=== PATIENT | male | born 1980 | race Caucasian/White ===

== ENCOUNTER → 2018-06-22 | Outpatient (CLI) | payer OTHER | END | disposition home or self-care (01) | LOC: SURG 11:12 | PROVIDERS: ATTEND Anesthesiology | DX: M47.817 Spondylosis without myelopathy or radiculopathy, lumbosacral region (principal); M54.16 Radiculopathy, lumbar region; I10 Essential (primary) hypertension; J45.909 Unspecified asthma, uncomplicated; G47.33 Obstructive sleep apnea (adult) (pediatric); Z87.891 Personal history of nicotine dependence | CPT/HCPCS: 99204 ==

== ENCOUNTER 2018-07-03 02:00 | Emergency (ER) | payer OTHER ==
[~2018-07-03] VITALS: Ht 180.3 cm; Wt 105.7 kg
[2018-07-03 02:15] VITALS: BP 150/106
[2018-07-03] MEDS ORDERED: METH4TAB2 PO (02:36)
[2018-07-03] MEDS ORDERED: predniSONE 20 MG TABLET ONE (02:39)
[2018-07-03] MEDS ORDERED: predniSONE 20 MG TABLET PO ONE (02:45)
--- NOTE | 2018-07-03 02:53 | ED.ADGEN ---
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 Patient states he recently returned from [place] and lost all his medications. He states he was instructed to go to the emergency department for refill of medications. Patient is unable to state which medications he is currently on including pain medication. He is only requesting refill of his pain medication. Patient does have medical records including an MRI of his lumbar spine which details moderate to severe spinal stenosis. He is been referred to the pain management Center and is currently awaiting outpatient epidural steroid injections. No acute injury or pain complaint. Review of Systems Review of Systems ROS as per HPI> ] All other systems were reviewed and found to be within normal limits, except as documented in this note. Current Medications Current Medications Current Medications Medications (Trade) Dose Ordered Sig/Sapna Start Time Stop Time Status Last Admin Dose Admin Prednisone (Prednisone) 60 mg 1X ONCE 07/03/18 02:45 07/03/18 02:46 UNV Physical Exam Physical Exam Constitutional: Well developed, well nourished, moderate discomfort. [] HENT: Normocephalic, atraumatic, bilateral external ears normal, oropharynx moist, no oral. [] Eyes: PERRLA, EOMI. [] Neck: Normal range of motion, no tenderness. [] Cardiovascular:Heart rate regular rhythm, no murmur [] Lungs & Thorax: Bilateral breath sounds clear to auscultation [] Back: Diffuse low back pain. [] Extremities: No tenderness. [] Neurologic: Alert and oriented X 3, normal motor function, normal sensory function, no focal deficits noted. [] Psychologic: Affect normal, judgement normal, mood normal. [] Current Patient Data Vital Signs Vital Signs Date Time Temp Pulse Resp B/P (MAP) Pulse Ox O2 Delivery O2 Flow Rate FiO2 07/03/18 02:15 97.8 105 18 150/106 (121) Room Air EKG EKG [] Radiology/Procedures Radiology/Procedures [] Course & Med Decision Making Course & Med Decision Making Pertinent Labs and Imaging studies reviewed. (See chart for details) [Denies acute pain injury or complaint. Patient declined pain all non-narcotic pain medications and treatment. Courtesy work excuse note provided with PCP follow recommended. ] Final Impression Final Impression [1. Medication refill request] Dragon Disclaimer Dragon Disclaimer This electronic medical record was generated, in whole or in part, using a voice recognition dictation system. SOFÍA PARIS DO Jul 03, 2018 02:52
== END 2018-07-03 02:42 | disposition home or self-care (01) ==
LOC: ER 02:00
DX: Z76.0 Encounter for issue of repeat prescription (principal); M54.5 Low back pain
CPT/HCPCS: 99283

== ENCOUNTER → 2018-07-06 | Outpatient (CLI) | payer OTHER ==
[2018-07-03 02:15] VITALS: BP 150/106
[~2018-07-06] MED LIST: METH4TAB2 PO
[2018-07-06 12:08] LABS: BARBITURATES NEG (NEG); BENZODIAZEPINES NEG (NEG); CANNABINOIDS NEG (NEG); COCAINE NEG (NEG); METHADONE NEG (NEG); OPIATES NEG (NEG); PHENCYCLIDINE NEG (NEG)
[2018-07-06 12:13] LABS: AMPHETAMINE/METHAMPHETAMINE POS (NEG)
== END | disposition home or self-care (01) ==
LOC: SURG 10:48
PROVIDERS: ATTEND Anesthesiology
DX: M47.27 Other spondylosis with radiculopathy, lumbosacral region (principal); I10 Essential (primary) hypertension; G47.33 Obstructive sleep apnea (adult) (pediatric); J45.909 Unspecified asthma, uncomplicated; Z79.899 Other long term (current) drug therapy
CPT/HCPCS: 36415; 80307; 99214; G0479

== ENCOUNTER → 2018-07-27 | Outpatient (CLI) | payer OTHER ==
[2018-07-03 02:15] VITALS: BP 150/106
[~2018-07-27] MED LIST changes: +0.9 % SODIUM CHLORIDE 10 ML VIAL ONE; +DEXAMETHASONE SOD PHOS 4 MG/ML VIAL ONE; +IOHEXOL 300 MG/ML 50 ML VIAL. ONE; +LIDOCAINE 1% PF 30 ML VIAL. ONE
== END ==
LOC: SURG 09:10
PROVIDERS: ATTEND Anesthesiology
DX: M54.16 Radiculopathy, lumbar region (principal)
CPT/HCPCS: 64483; J1100; J2001; Q9967

== ENCOUNTER 2019-05-09 05:22 | Emergency (ER) | payer OTHER ==
[~2019-05-09] VITALS: Ht 180.3 cm; Wt 112.0 kg
[~2019-05-09 05:22] MED LIST changes: -0.9 % SODIUM CHLORIDE 10 ML VIAL ONE; -DEXAMETHASONE SOD PHOS 4 MG/ML VIAL ONE; -IOHEXOL 300 MG/ML 50 ML VIAL. ONE; -LIDOCAINE 1% PF 30 ML VIAL. ONE
--- NOTE | 2019-05-09 05:40 | ED.ADGEN ---
Past History Past Medical History: Other (GENET LAGUNA MD) Alcohol Use: Occasionally (GENET LAGUNA MD) Adult General Chief Complaint Chief Complaint ".. I ve been having abdomen pain, cramping.. and diarrhea...".."This been going on for 3-4 days.. ".. Diarrhea - yellow water... 6-7 x day.. 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 No recent overseas travel. No specific ill contacts. No history immunosuppression. No history of family colitis or ulcerative colitis.. Patient has been healthy. No history of prior Crohn's or colitis. Did eat a pork chop and white rice for dinner. There are 10 children in the family unit and some are always sick with something. Patient normally follows at [facility]. (GENET LAGUNA MD) Review of Systems Review of Systems Constitutional: Denies fever or chills [] Eyes: Denies change in visual acuity, redness, or eye pain [] HENT: Denies nasal congestion or sore throat [] Respiratory: Denies cough or shortness of breath [] Cardiovascular: No additional information not addressed in HPI [] GI: Complaints of abdomen cramping abdominal pain, nausea. Denies, vomiting, bloody stools. Complains of watery yellow diarrhea [] : Denies dysuria or hematuria [] Musculoskeletal: Denies back pain or joint pain [] Integument: Denies rash or skin lesions [] Neurologic: Denies headache, focal weakness or sensory changes [] Endocrine: Denies polyuria or polydipsia [] All other systems were reviewed and found to be within normal limits, except as documented in this note. (GENET LAGUNA MD) Family History Family History Noncontributory (GENET LAGUNA MD) Current Medications Current Medications Current Medications Medications (Trade) Dose Ordered Sig/Sapna Start Time Stop Time Status Last Admin Dose Admin Famotidine (Pepcid Vial) 20 mg 1X ONCE 05/09/19 06:00 05/09/19 06:01 DC 05/09/19 06:04 20 MG Hyoscyamine (Anaspaz) 0.25 mg 1X ONCE 05/09/19 08:25 05/09/19 08:26 DC 05/09/19 08:04 0.25 MG Iohexol (Omnipaque 300 Mg/ml) 75 ml 1X ONCE 05/09/19 08:15 05/09/19 08:16 DC 05/09/19 08:18 75 ML Ketorolac Tromethamine (Toradol 30mg Vial) 30 mg 1X ONCE 05/09/19 06:00 05/09/19 06:01 DC 05/09/19 06:04 30 MG Lactated Ringer's 1,000 ml @ 1,000 mls/hr 1X ONCE 05/09/19 07:15 05/09/19 08:14 DC 05/09/19 07:25 1,000 MLS/HR Morphine Sulfate (Morphine 10mg Syringe) 10 mg 1X ONCE 05/09/19 07:30 05/09/19 07:31 DC 05/09/19 07:25 10 MG Ondansetron HCl (Zofran) 8 mg 1X ONCE 05/09/19 06:00 05/09/19 06:01 DC 05/09/19 06:04 8 MG (KYM THACKER DO) Allergies Allergies Allergies Coded Allergies Type Severity Reaction Last Updated Verified methocarbamol Allergy Severe Itching 05/09/19 Yes (KYM THACKER DO) Physical Exam Physical Exam Constitutional: Well developed, well nourished,in acute distress, non-toxic appearance. [] HENT: Normocephalic, atraumatic, bilateral external ears normal, oropharynx dry, no oral exudates, nose normal. [] Eyes: PERRLA, EOMI, conjunctiva normal, no discharge. [] Neck: Normal range of motion, no tenderness, supple, no stridor. [] Cardiovascular:Heart rate regular rhythm, no murmur [] Lungs & Thorax: Bilateral breath sounds equal at apex auscultation [] Abdomen: Bowel sounds are hyperactive, soft, generalized tenderness, some rebound to upper abdomen area, no masses, no pulsatile masses. [] Skin: Warm, dry, no erythema, no rash. [] Back: No tenderness, no CVA tenderness. [] Extremities: No tenderness, no cyanosis, no clubbing, ROM intact, no edema. [] No psoas sign Neurologic: Alert and oriented X 3, normal motor function, normal sensory function, no focal deficits noted. [] Psychologic: Affect anxious, judgement normal, mood normal. [] (GENET LAGUNA MD) Current Patient Data Vital Signs Vital Signs Date Time Temp Pulse Resp B/P (MAP) Pulse Ox O2 Delivery O2 Flow Rate FiO2 05/09/19 07:30 74 18 154/101 (118) 94 Room Air 05/09/19 05:22 97.8 ([facility] [facility]) Lab Results Laboratory Tests Test 05/09/19 05:45 05/09/19 07:55 White Blood Count 8.3 x10^3/uL (4.0-11.0) Red Blood Count 5.01 x10^6/uL (4.30-5.70) Hemoglobin 15.9 g/dL (13.0-17.5) Hematocrit 48.0 % (39.0-53.0) Mean Corpuscular Volume 96 fL (79-100) Mean Corpuscular Hemoglobin 32 pg (25-35) Mean Corpuscular Hemoglobin Concent 33 g/dL (31-37) Red Cell Distribution Width 13.2 % (11.5-14.5) Platelet Count 294 x10^3/uL (140-400) Neutrophils (%) (Auto) 64 % (31-73) Lymphocytes (%) (Auto) 24 % (24-48) Monocytes (%) (Auto) 8 % (0-9) Eosinophils (%) (Auto) 3 % (0-3) Basophils (%) (Auto) 1 % (0-3) Neutrophils # (Auto) 5.3 x10^3uL (1.8-7.7) Lymphocytes # (Auto) 2.0 x10^3/uL (1.0-4.8) Monocytes # (Auto) 0.6 x10^3/uL (0.0-1.1) Eosinophils # (Auto) 0.2 x10^3/uL (0.0-0.7) Basophils # (Auto) 0.1 x10^3/uL (0.0-0.2) Prothrombin Time 9.6 SEC (9.4-11.4) Prothrombin Time INR 0.9 (0.9-1.1) Activated Partial Thromboplast Time 25 SEC (23-33) Sodium Level 140 mmol/L (136-145) Potassium Level 4.4 mmol/L (3.5-5.1) Chloride Level 106 mmol/L (98-107) Carbon Dioxide Level 25 mmol/L (21-32) Anion Gap 9 (6-14) Blood Urea Nitrogen 13 mg/dL (8-26) Creatinine 1.1 mg/dL (0.7-1.3) Estimated GFR (Cockcroft-Gault) 74.5 Glucose Level 103 mg/dL (70-99) H Calcium Level 8.6 mg/dL (8.5-10.1) Total Bilirubin 0.1 mg/dL (0.2-1.0) L Direct Bilirubin < 0.1 mg/dL (0.0-0.2) Aspartate Amino Transferase (AST) 16 U/L (15-37) Alanine Aminotransferase (ALT) 32 U/L (16-63) Alkaline Phosphatase 71 U/L (46-116) Creatine Kinase 71 U/L (39-308) Troponin I Quantitative < 0.017 ng/mL (0-0.055) Total Protein 6.9 g/dL (6.4-8.2) Albumin 3.7 g/dL (3.4-5.0) Amylase Level 46 U/L (25-115) Lipase 126 U/L (73-393) Urine Collection Type Unknown Urine Color [place] Urine Clarity Clear Urine pH 5.5 Urine Specific [place] >=1.030 Urine Protein Neg (NEG-TRACE) Urine Glucose (UA) Neg mg/dL (NEG) Urine Ketones (Stick) Neg mg/dL (NEG) Urine Blood Neg (NEG) Urine Nitrite Neg (NEG) Urine Bilirubin Neg (NEG) Urine Urobilinogen Dipstick 0.2 mg/dL (0.2 mg/dL) Urine Leukocyte Esterase Neg (NEG) Urine RBC 0 /HPF (0-2) Urine WBC 1-4 /HPF (0-4) Urine Squamous Epithelial Cells Occ /LPF Urine Bacteria 0 /HPF (0-FEW) Urine Mucus Mod /LPF Urine Opiates Screen Pos (NEG) Urine Methadone Screen Neg (NEG) Urine Barbiturates Neg (NEG) Urine Phencyclidine Screen Neg (NEG) Urine Amphetamine/Methamphetamine Neg (NEG) Urine Benzodiazepines Screen Neg (NEG) Urine Cocaine Screen Neg (NEG) Urine Cannabinoids Screen Neg (NEG) Urine Ethyl Alcohol Neg (NEG) ([facility]) Lab Results Laboratory Tests Test 05/09/19 05:45 White Blood Count 8.3 x10^3/uL (4.0-11.0) Red Blood Count 5.01 x10^6/uL (4.30-5.70) Hemoglobin 15.9 g/dL (13.0-17.5) Hematocrit 48.0 % (39.0-53.0) Mean Corpuscular Volume 96 fL (79-100) Mean Corpuscular Hemoglobin 32 pg (25-35) Mean Corpuscular Hemoglobin Concent 33 g/dL (31-37) Red Cell Distribution Width 13.2 % (11.5-14.5) Platelet Count 294 x10^3/uL (140-400) Neutrophils (%) (Auto) 64 % (31-73) Lymphocytes (%) (Auto) 24 % (24-48) Monocytes (%) (Auto) 8 % (0-9) Eosinophils (%) (Auto) 3 % (0-3) Basophils (%) (Auto) 1 % (0-3) Neutrophils # (Auto) 5.3 x10^3uL (1.8-7.7) Lymphocytes # (Auto) 2.0 x10^3/uL (1.0-4.8) Monocytes # (Auto) 0.6 x10^3/uL (0.0-1.1) Eosinophils # (Auto) 0.2 x10^3/uL (0.0-0.7) Basophils # (Auto) 0.1 x10^3/uL (0.0-0.2) Prothrombin Time 9.6 SEC (9.4-11.4) Prothrombin Time INR 0.9 (0.9-1.1) Activated Partial Thromboplast Time 25 SEC (23-33) Sodium Level 140 mmol/L (136-145) Potassium Level 4.4 mmol/L (3.5-5.1) Chloride Level 106 mmol/L (98-107) Carbon Dioxide Level 25 mmol/L (21-32) Anion Gap 9 (6-14) Blood Urea Nitrogen 13 mg/dL (8-26) Creatinine 1.1 mg/dL (0.7-1.3) Estimated GFR (Cockcroft-Gault) 74.5 Glucose Level 103 mg/dL (70-99) H Calcium Level 8.6 mg/dL (8.5-10.1) Total Bilirubin 0.1 mg/dL (0.2-1.0) L Direct Bilirubin < 0.1 mg/dL (0.0-0.2) Aspartate Amino Transferase (AST) 16 U/L (15-37) Alanine Aminotransferase (ALT) 32 U/L (16-63) Alkaline Phosphatase 71 U/L (46-116) Creatine Kinase 71 U/L (39-308) Troponin I Quantitative < 0.017 ng/mL (0-0.055) Total Protein 6.9 g/dL (6.4-8.2) Albumin 3.7 g/dL (3.4-5.0) Amylase Level 46 U/L (25-115) Lipase 126 U/L (73-393) (GENET LAGUNA MD) EKG EKG [] (GENET LAGUNA MD) Radiology/Procedures Radiology/Procedures [][place] [address] IMAGING REPORT Signed PATIENT: MEY CASTRO ACCOUNT: [id number] : 1980 LOCATION: ER AGE: 38 SEX: M EXAM STATUS: REG ER ORD. PHYSICIAN: GENET LAGUNA MD REASON: Severe upper abdomen pain PROCEDURE: ACUTE ABDOMEN SERIES EXAM: 2 VIEW ABDOMEN WITH ONE VIEW CHEST. HISTORY: Abdominal pain. COMPARISON: None. FINDINGS: A frontal view of the chest and supine/upright views of the abdomen are obtained. There are no confluent infiltrates. There is no pneumothorax or pleural effusion. The heart is not enlarged. There is no pneumoperitoneum. There are no distended small bowel loops or significant air-fluid levels. There is gas distally. IMPRESSION: 1. No confluent infiltrates. 2. No evidence of obstruction. Electronically signed by: Kendra Bonilla MD (05/09/2019 6:46 AM) [facility] DICTATED AND SIGNED BY: MARISELA BONILLA MD DATE: 05/09/19 0646 CC: GENET LAGUNA MD; SATNAM OMALLEY (GENET LAGUNA MD) Course & Med Decision Making Course & Med Decision Making Pertinent Labs and Imaging studies reviewed. (See chart for details) Pt. had not been able to product urine yet at shift change. Pt. endorsed to Dr. Thacker. He will make final disposition. Patient's stay on a clear fluid diet for 48 hours. No solid or milk products. Must allow bowel rest. Patient follow-up primary care. Patient take Zofran as needed for nausea and vomiting. Patient follow-up [facility]. A take Tylenol and ibuprofen for pain. For marked pain may take Vicoprofen. Follow-up stool cultures. Return if any concerns. [] (GENET LAGUNA MD) Course & Med Decision Making Received patient from the overnight physician. Agree with previous H&P. Patient has continued to do well. He was oral intake tolerant after 2 L of fluid. He was able to give a urine sample. He was able to be transported to and from CT scan without any complications. After return of the CT scan, findings were discussed with the patient who voiced understanding. He was discharged in improved condition. PROCEDURE: CT ABD PELV W/ IV CONTRST ONLY CT ABD PELV W/ IV CONTRST ONLY Indication: Upper abdominal pain with radiation between the shoulder blades Technique: Postcontrast CT imaging was performed of the abdomen pelvis, multiplanar reconstruction images submitted. One or more of the following individualized dose reduction techniques were utilized for this examination: 1. Automated exposure control 2. Adjustment of the mA and/or kV according to patient size 3. Use of iterative reconstruction technique. Comparison: None Findings: There is mild dependent atelectasis lung bases bilaterally. No focal abnormality is identified of the liver, spleen, pancreas. Gallbladder is present without obvious intraluminal abnormality by CT. There is no adrenal nodularity. Both kidneys enhance, no hydronephrosis. Gallbladder is present without obvious intraluminal abnormality by CT. Accurate evaluation of bowel is limited without oral contrast. Bowel is not significantly dilated. There is no free fluid or free air. There is [id number] hazy change of pericolonic fat most notable near the hepatic flexure of the colon, also minimally adjacent to the proximal sigmoid colon. There is appearance of mild wall thickening of the colon greatest near hepatic flexure and proximal transverse colon and also probably of the sigmoid colon. Normal appendix is visualized. IMPRESSION: 1. There is some hazy pericolonic inflammatory type change and wall thickening most notable near the hepatic flexure proximal transverse colon also involvement of sigmoid colon, overall evidence of colitis. (KYM THACKER DO) Final Impression Final Impression 1. Abdomen Pain 2. Gastroenteritis[] 3. Dehydration (GENET LAGUNA MD) Final Impression Colitis (KY[facility] THACKER DO) Dragon Disclaimer Dragon Disclaimer This electronic medical record was generated, in whole or in part, using a voice recognition dictation system. (GENET LAGUNA MD) Dragon Disclaimer This chart was dictated in whole or in part using Voice Recognition software in a busy, high-work load, and often noisy Emergency Department environment. It may contain unintended and wholly unrecognized errors or omissions. (GENET LAGUNA MD) GENET LAGUNA MD May 09, 2019 05:40 KYM THACKER DO May 09, 2019 09:00
[2019-05-09 05:59] LABS: BASO # 0.1 x10^3/uL (0.0-0.2); BASO % 1 % (0-3); EOS # 0.2 x10^3/uL (0.0-0.7); EOS % 3 % (0-3); HEMOGLOBIN 15.9 g/dL (13.0-17.5); LYMPH % 24 % (24-48); MEAN CORPUSCULAR HEMOGLOBIN 32 pg (25-35); MEAN CORPUSCULAR HGB CONC 33 g/dL (31-37); MEAN CORPUSCULAR VOLUME 96 fL (79-100); MONO # 0.6 x10^3/uL (0.0-1.1); MONO % 8 % (0-9); NEUT # 5.3 x10^3uL (1.8-7.7); NEUT % 64 % (31-73); PLATELET COUNT 294 x10^3/uL (140-400); RED BLOOD COUNT 5.01 x10^6/uL (4.30-5.70); RED CELL DISTRIBUTION WIDTH 13.2 % (11.5-14.5); WHITE BLOOD COUNT 8.3 x10^3/uL (4.0-11.0)
[2019-05-09] MEDS ORDERED: ONDA8TAB9 PO (05:59)
[2019-05-09] MEDS ORDERED: HYDR-1179 PO (05:59)
[2019-05-09] MEDS ORDERED: KETOROLAC 30 MG/ML VIAL. IV ONE (06:00)
[2019-05-09] MEDS ORDERED: ONDANSETRON PF 4 MG/2 ML VIAL. IV ONE (06:00)
[2019-05-09] MEDS ORDERED: IV RINGERS SOLUTION,LACTATED 1,000 ML IV SCH (06:00)
[2019-05-09] MEDS ORDERED: FAMOTIDINE 20 MG/2 ML VIAL IVP ONE (06:00)
[2019-05-09 06:13] LABS: ALBUMIN 3.7 g/dL (3.4-5.0); ALK PHOS 71 U/L (46-116); ALT (SGPT) 32 U/L (16-63); AMYLASE 46 U/L (25-115); ANION GAP 9 (6-14); AST (SGOT) 16 U/L (15-37); BLOOD UREA NITROGEN 13 mg/dL (8-26); CALCIUM 8.6 mg/dL (8.5-10.1); CARBON DIOXIDE 25 mmol/L (21-32); CHLORIDE 106 mmol/L (98-107); CREATININE 1.1 mg/dL (0.7-1.3); GFR 74.5; GLUCOSE 103 mg/dL (70-99); LIPASE 126 U/L (73-393); POTASSIUM 4.4 mmol/L (3.5-5.1); SODIUM 140 mmol/L (136-145); TOTAL BILIRUBIN 0.1 mg/dL (0.2-1.0); TOTAL PROTEIN 6.9 g/dL (6.4-8.2)
[2019-05-09] MEDS ORDERED: MORPHINE SULFATE 10 MG/ML SYRINGE. SQ ONE ×2 (06:15→07:30)
[2019-05-09 06:20] LABS: DIRECT BILIRUBIN < 0.1 mg/dL (0.0-0.2)
--- NOTE | 2019-05-09 06:49 | RAD ---
EXAM: 2 VIEW ABDOMEN WITH ONE VIEW CHEST. HISTORY: Abdominal pain. COMPARISON: None. FINDINGS: A frontal view of the chest and supine/upright views of the abdomen are obtained. There are no confluent infiltrates. There is no pneumothorax or pleural effusion. The heart is not enlarged. There is no pneumoperitoneum. There are no distended small bowel loops or significant air-fluid levels. There is gas distally. IMPRESSION: 1. No confluent infiltrates. 2. No evidence of obstruction. Electronically signed by: Kendra Bonlila MD (05/09/2019 6:46 AM) [facility]
[2019-05-09] MEDS ORDERED: IV RINGERS SOLUTION,LACTATED 1,000 ML IV ONE (07:15)
[2019-05-09] MEDS ORDERED: IOHEXOL 300 MG/ML 75 ML VIAL. IV ONE (08:15)
[2019-05-09 08:22] LABS: AMPHETAMINE/METHAMPHETAMINE NEG (NEG); BARBITURATES NEG (NEG); BENZODIAZEPINES NEG (NEG); CANNABINOIDS NEG (NEG); COCAINE NEG (NEG); METHADONE NEG (NEG); OPIATES POS (NEG); PHENCYCLIDINE NEG (NEG)
[2019-05-09] MEDS ORDERED: HYOSCYAMINE 0.125 MG TAB.RAPDIS PO ONE (08:25)
[2019-05-09 08:28] LABS: BACTERIA,URINE 0 /HPF (0-FEW); BILIRUBIN,URINE NEG (NEG); CLARITY,URINE CLEAR; COLOR,URINE AMBER; GLUCOSE,URINE NEG (NEG); NITRITE,URINE NEG (NEG); RBC,URINE 0 /HPF (0-2); SQUAMOUS EPITHELIAL CELL,UR OCC /LPF; UROBILINOGEN,URINE 0.2 mg/dL (0.2 mg/dL)
--- NOTE | 2019-05-09 08:38 | RAD ---
CT ABD PELV W/ IV CONTRST ONLY Indication: Upper abdominal pain with radiation between the shoulder blades Technique: Postcontrast CT imaging was performed of the abdomen pelvis, multiplanar reconstruction images submitted. One or more of the following individualized dose reduction techniques were utilized for this examination: 1. Automated exposure control 2. Adjustment of the mA and/or kV according to patient size 3. Use of iterative reconstruction technique. Comparison: None Findings: There is mild dependent atelectasis lung bases bilaterally. No focal abnormality is identified of the liver, spleen, pancreas. Gallbladder is present without obvious intraluminal abnormality by CT. There is no adrenal nodularity. Both kidneys enhance, no hydronephrosis. Gallbladder is present without obvious intraluminal abnormality by CT. Accurate evaluation of bowel is limited without oral contrast. Bowel is not significantly dilated. There is no free fluid or free air. There is [id number] hazy change of pericolonic fat most notable near the hepatic flexure of the colon, also minimally adjacent to the proximal sigmoid colon. There is appearance of mild wall thickening of the colon greatest near hepatic flexure and proximal transverse colon and also probably of the sigmoid colon. Normal appendix is visualized. IMPRESSION: 1. There is some hazy pericolonic inflammatory type change and wall thickening most notable near the hepatic flexure proximal transverse colon also involvement of sigmoid colon, overall evidence of colitis. Electronically signed by: Sergio Diaz MD (05/09/2019 8:35 AM) [id number]
[2019-05-09] MEDS ORDERED: HYOS0.1264 PO (09:02)
[2019-05-09] MEDS ORDERED: METR500T PO (09:02)
[2019-05-09] MEDS ORDERED: SULF1TAB24 PO (09:02)
[2019-05-09 09:10] VITALS: BP 157/104
== END 2019-05-09 09:10 | disposition home or self-care (01) ==
LOC: ER 05:22
DX: K52.9 Noninfective gastroenteritis and colitis, unspecified (principal); E86.0 Dehydration; Z88.8 Allergy status to other drugs, medicaments and biological substances
CPT/HCPCS: 36415; 74022; 74177; 80048; 80076; 80307; 81001; 82150; 82550; 83690; 84484; 85025; 85610; 85730; 96361; 96372; 96374; 96375; 99285; J1885; J2270; J2405; J3490; J7120; Q9967

== ENCOUNTER 2020-12-26 11:56 | Emergency (ER) | payer OTHER ==
[~2020-12-26] VITALS: Ht 180.3 cm; Wt 118.9 kg
[~2020-12-26 11:56] MED LIST changes: +HYDR-1179 PO; +HYOS0.1264 PO; +METR500T PO; +ONDA8TAB9 PO; +SULF1TAB24 PO
[2020-12-26 12:05] VITALS: BP 136/108
[2020-12-26] MEDS ORDERED: CYCLOBENZAPRINE 10 MG TABLET. PO ONE (12:30)
[2020-12-26] MEDS ORDERED: KETOROLAC 15 MG/ML VIAL. IM ONE (12:30)
--- NOTE | 2020-12-26 12:36 | PHYS DOC ---
Past History Past Medical History: Hypertension, Other Additional Past Medical Histor: PTSD, ADHD Additional Past Surgical Histo: Shoulder, R knee, vasectomy, hurnia. Alcohol Use: Occasionally Drug Use: None General Adult EDM: Chief Complaint: BACK PAIN OR INJURY HPI: HPI: Patient is a 40-year-old male who presents with lower back pain. Patient states this morning he was loading something into the back of his truck, when the tailgate fell and hit him directly on his lower back. Patient reports he has been having back spasms and pain is worse with changing positions. Patient reports the pain radiates from his lower back down to his mid thigh bilaterally. Patient took 800 of Motrin this morning and has been wearing a lidocaine patch with no relief. Denies urinary retention or loss of bowel. No bruising or s igns of trauma on lower back. Has history of hypertension, chronic back pain, PTSD, ADHD. Review of Systems: Review of Systems: Constitutional: Denies fever or chills Eyes: Denies change in visual acuity HENT: Denies nasal congestion or sore throat Respiratory: Denies cough or shortness of breath Cardiovascular: Denies chest pain or edema GI: Denies abdominal pain, nausea, vomiting, bloody stools or diarrhea : Denies dysuria Musculoskeletal: Reports lower back pain, denies joint pain Integument: Denies rash Neurologic: Denies headache, focal weakness or sensory changes Endocrine: Denies polyuria or polydipsia Lymphatic: Denies swollen glands Psychiatric: Denies depression or anxiety Allergies: Allergies: Allergies Coded Allergies Type Severity Reaction Last Updated Verified methocarbamol Allergy Severe Itching 12/26/20 Yes Physical Exam: PE: Constitutional: Well developed, well nourished, no acute distress, non-toxic appearance. [] HENT: Normocephalic, atraumatic, bilateral external ears normal, oropharynx moist, no oral exudates, nose normal. [] Eyes: PERRLA, EOMI, conjunctiva normal, no discharge. [] Neck: Normal range of motion, no tenderness, supple, no stridor. [] Cardiovascular:Heart rate regular rhythm, no murmur [] Lungs & Thorax: Bilateral breath sounds clear to auscultation [] Abdomen: Bowel sounds normal, soft, no tenderness, no masses, no pulsatile masses. [] Skin: Warm, dry, no erythema, no rash. [] Back: Lower back tenderness, no CVA tenderness. [] Extremities: No tenderness, no cyanosis, no clubbing, ROM intact, no edema. [] Neurologic: Alert and oriented X 3, normal motor function, normal sensory function, no focal deficits noted. [] Psychologic: Affect normal, judgement normal, mood normal. [] Current Patient Data: Vital Signs: Vital Signs Date Time Temp Pulse Resp B/P (MAP) Pulse Ox O2 Delivery O2 Flow Rate FiO2 12/26/20 12:05 98.1 98 16 136/108 (117) 96 Room Air EKG: EKG: [] Radiology/Procedures: Radiology/Procedures: []XR LUMBAR SPINE 4+V DATE: 12/26/2020 12:30 PM INDICATION: Reason: PAIN, TAILGATE FELL ON LOWER BACK / Spl. Instructions: / History: COMPARISON: None. FINDINGS: Bones/Alignment: No evidence of acute compression fracture. There is no listhesis. Joints: There is no disc space loss. Miscellaneous: None. IMPRESSION: No evidence of acute compression fracture. Electronically signed by: Sergio Da Silva MD (12/26/2020 1:08 PM) [id number] Heart Score: C/O Chest Pain: No Risk Factors: Risk Factors: DM, Current or recent (<one month) smoker, HTN, HLP, family history of CAD, obesity. Risk Scores: Score 0 - 3: 2.5% MACE over next 6 weeks - Discharge Home Score 4 - 6: 20.3% MACE over next 6 weeks - Admit for Clinical Observation Score 7 - 10: 72.7% MACE over next 6 weeks - Early Invasive Strategies Course & Med Decision Making: Course & Med Decision Making Pertinent Labs and Imaging studies reviewed. (See chart for details) [] Patient was loading material into the back of his truck when his tailgate slammed down onto his lower back. Patient not showing any signs of cauda equina syndrome. Patient is still able to ambulate. Pain is worse with changing positions. Patient has midline, lower lumbar pain, with bilateral sciatica. Lumbar x-ray ordered to rule out fracture. Flexeril and Toradol given for pain. No signs of trauma on lower back with physical exam. Lumbar x-ray is negative for any acute fractures. I am sending the patient home with a prescription for Flexeril, hydrocodone and instructions to continue taking ibuprofen and using lidocaine patches for discomfort. Patient to follow-up with his PCP if pain continues. Explained to patient to return to emergency room if you start having issues with urinary retention or loss of bowel. Patient is appreciative and okay with this plan. Sepideh Disclaimer: Sepideh Disclaimer: This electronic medical record was generated, in whole or in part, using a voice recognition dictation system. Departure Departure: Impression: Primary Impression: Lower back pain Qualified Codes: M54.42 - Lumbago with sciatica, left side; M54.41 - Lumbago with sciatica, right side Disposition: 01 DC HOME SELF CARE/HOMELESS Condition: STABLE Referrals: SATNAM OMALLEY (PCP) Patient Instructions: Back Pain, Adult, Sciatica, [id number] Additional Instructions: You were seen in the emergency room today for lower back pain after your tailgate fell on your back. You were given Toradol and Flexeril in the emergency room for pain. Continue to take ibuprofen and use lidocaine patches at home for discomfort. I am sending you home with a prescription for Flexeril and also hydrocodone. If pain continues please follow-up with your PCP or return to the emergency room with worsening symptoms or concerns. EMERGENCY DEPARTMENT GENERAL DISCHARGE INSTRUCTIONS Thank you for coming to [facility] (ED) today and trusting us with you care. We trust that you had a positivie experience in our Emergency Department. If you wish to speak to the department management, you may call the director at [phone]. YOUR FOLLOW UP INSTRUCTIONS ARE FOLLOWS: 1. Do you have a private Doctor? If you do not have a private doctor, please ask for a resource list of physicians or clinics that may be able to assist you with follow up care. 2. The Emergency Physician has interpreted your x-rays. The X-Ray specialist will also review them. If there is a change in the findings, you will be notified in 48 hours when at all possible. 3. A lab test or culture has been done, your results will be reviewed and you will be notified if you need a change in treatment. ADDITIONAL INSTRUCTIONS AND INFORMATION: 1. Your care today has been supervised by a physician who is specially trained in emergency care. Many problems require more than one evaluation for a complete diagnosis and treatment. We recommend that you schedule your follow up appointment as recommended to ensure complete treatment of you illness or injury. If you are unable to obtain follow up care and continue to have a problem, or if your condition worsens, we recommend that you return to the ED. 2. We are not able to safely determine your condition over the phone nor are we able to give sound medical advice over the phone. For these safety reasons, if you call for medical advice we will ask you to come to the ED for further evaluation. 3. If you have any questions regarding these discharge instructions please call the ED at [phone]. SAFETY INFORMATION: In the interest of safety, wellness, and injury prevention; we encourage you to wear your sealbelt, if you smoke; quite smoking, and we encourage family to use a protective helmet for bicycling and other sporting events that present an increased risk for head injury. IF YOUR SYMPTOMS WORSEN OR NEW SYMPTOMS DEVELOP, OR YOU HAVE CONCERNS ABOUT YOUR CONDITION; OR IF YOUR CONDITION WORSENS WHILE YOU ARE WAITING FOR YOUR FOLLOW UP APPOINTMENT; EITHER CONTACT YOUR PRIMARY CARE DOCTOR, THE PHYSICIAN WHOSE NAME AND NUMBER YOU WERE GIVEN, OR RETURN TO THE ED IMMEDIATELY. Scripts Hydrocodone Bit/Acetaminophen (HYDROCODONE-APAP 5-325 ) 1 Each Tablet 1-2 TAB PO PRN Q6HRS PRN for PAIN for 3 Days, #12 TAB 0 Refills Prov: DUSTIN PRICE APRN 12/26/20 Cyclobenzaprine Hcl (CYCLOBENZAPRINE HCL) 10 Mg Tablet 1 TAB PO TID PRN PRN for PAIN, #12 TAB Prov: DUSTIN PRICE APRN 12/26/20 DUSTIN PRICE APRN Dec 26, 2020 12:36
--- NOTE | 2020-12-26 13:10 | RAD ---
XR LUMBAR SPINE 4+V DATE: 12/26/2020 12:30 PM INDICATION: Reason: PAIN, TAILGATE FELL ON LOWER BACK / Spl. Instructions: / History: COMPARISON: None. FINDINGS: Bones/Alignment: No evidence of acute compression fracture. There is no listhesis. Joints: There is no disc space loss. Miscellaneous: None. IMPRESSION: No evidence of acute compression fracture. Electronically signed by: Sergio Da Silva MD (12/26/2020 1:08 PM) [id number]
[2020-12-26] MEDS ORDERED: CYCL-331 PO (13:32)
[2020-12-26] MEDS ORDERED: HYDR-2155 PO (13:32)
== END 2020-12-26 13:38 | disposition home or self-care (01) ==
LOC: ER 11:56
DX: M54.42 Lumbago with sciatica, left side (principal); M54.41 Lumbago with sciatica, right side; I10 Essential (primary) hypertension; F43.10 Post-traumatic stress disorder, unspecified; Z88.8 Allergy status to other drugs, medicaments and biological substances
CPT/HCPCS: 72110; 96372; 99283; J1885